=== PATIENT | male | born 1955 | race Caucasian/White ===

== ENCOUNTER 2016-08-11 14:30 | Emergency (ER) | payer OTHER ==
[~2016-08-11 14:30] MED LIST: LEXAPRO10 MG
[2016-08-11] MEDS ORDERED: PROTONIX40 M2 PO (14:45)
[2016-08-11] MEDS ORDERED: KEFLEX500 M4 PO (16:25)
[2016-08-11] MEDS ORDERED: NORCO 5-325 TA1 EACH PO (16:28)
== END 2016-08-11 17:05 ==
LOC: EDMED 14:30
PROC: 0HQKXZZ Repair Right Lower Leg Skin, External Approach (ICD-10-PCS; principal; 2016-08-11)
DX: S81.811A Laceration without foreign body, right lower leg, initial encounter (principal); Z23 Encounter for immunization; W22.8XXA Striking against or struck by other objects, initial encounter; Y92.019 Unspecified place in single-family (private) house as the place of occurrence of the external cause
CPT/HCPCS: J2270; J7030